=== PATIENT | male | born 1990 | race Hispanic/Latino ===

== ENCOUNTER 2018-01-27 16:28 | Emergency (ER) | payer OTHER ==
[2018-01-27 17:16] VITALS: RESP 18; TEMP 97.6
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
[2018-01-27 18:59] VITALS: BP 129/73; PULSE 68; O2SAT 95
== END 2018-01-27 18:51 | disposition home or self-care (01) ==
LOC: C.ER 16:28
DX: S93.601D Unspecified sprain of right foot, subsequent encounter (principal); W22.8XXD Striking against or struck by other objects, subsequent encounter